=== PATIENT | female | born 1990 | race Caucasian/White ===

== ENCOUNTER 2016-10-05 01:23 | Emergency (ER) | payer OTHER ==
[~2016-10-05] VITALS: Ht 165.1 cm; Wt 92.3 kg
[~2016-10-05 01:23] MED LIST: BACTRIM,SEPT1 TABLET PO; CYMBALTA60 MG PO; KEFLEX500 MG PO
[2016-10-05] MEDS ORDERED: PERCOCET 5/31 TABLET PO (03:07)
[2016-10-05] MEDS ORDERED: MOTRIN800 MG PO (03:07)
[2016-10-05] MEDS ORDERED: FLEXERIL10 MG PO (03:07)
[2016-10-05 03:15] VITALS: BP 134/91
== END 2016-10-05 03:16 | disposition home or self-care (01) ==
LOC: EME 01:23
DX: S33.5XXA Sprain of ligaments of lumbar spine, initial encounter (principal); W01.0XXA Fall on same level from slipping, tripping and stumbling without subsequent striking against object, initial encounter; Y92.511 Restaurant or cafe as the place of occurrence of the external cause; Y99.0 Civilian activity done for income or pay; F32.9 Major depressive disorder, single episode, unspecified; F41.9 Anxiety disorder, unspecified
CPT/HCPCS: 72100; 99281; 99284